=== PATIENT | male | born 1965 | race African-American/Black ===

== ENCOUNTER 2021-03-05 01:42 | Observation (INO) | payer BC ==
[2021-03-05] MEDS ORDERED: Ondansetron ODT 4 MG TAB PO PRN (02:55)
[2021-03-05] MEDS ORDERED: Acetaminophen 325 MG TAB PO PRN (02:55)
[2021-03-05] MEDS ORDERED: hydrALAZINE 20 MG/ML VIAL SLOW IVP PRN (02:55)
[2021-03-05] MEDS ORDERED: Ondansetron PF 4 MG/2 ML Vial IVP PRN (02:55)
[2021-03-05] MEDS ORDERED: Enoxaparin Sodium 40 MG/0.4 ML SYRINGE SC SCH (03:30)
[2021-03-05 04:11] LABS: SARS-CoV-2 NAA Rapid Test Not Detected (NotDetected)
[2021-03-05 06:32] LABS: #Eosinphils 0.2 thou/uL (0.0-0.7); #Lymphocytes 2.7 thou/uL (1.20-3.40); #Monocytes 0.5 thou/uL (0.11-0.59); #Neutrophils 2.1 thou/uL (1.40-6.50); %Basophils 0.8 % (0.0-1.0); %Eosinophils 3.3 % (0.0-10.0); %Lymphocytes 49.4 % (21.0-51.0); %Monocytes 8.7 % (0.0-10.0); %Neutrophils 37.7 % (42.0-75.0); Mean Corpuscular HGB CONC 32.6 g/dL (32.0-36.0); Mean Corpuscular Hemoglobin 28.9 pg (27.0-31.0); Mean Corpuscular Volume 88.8 fL (78.0-98.0); Mean Platelet Volume 7.4 fL (7.4-10.4); Platelet Count 255 thou/uL (130-400); Red Blood Cell (RBC) Count 4.15 mill/uL (4.70-6.10); White Blood Cell (WBC) Count 5.5 thou/uL (4.8-10.8)
[2021-03-05 06:49] LABS: Anion Gap 14 mmol/L (10-20); BUN (Urea Nitrogen) 15 mg/dL (8.4-25.7); Calc. Creatinine Clearance 0 mL/min (70-130); Calcium 9.2 mg/dL (7.8-10.44); Carbon Dioxide 25 mmol/L (22-29); Cardiac Risk 5.9 (Less than 4.5); Chloride 101 mmol/L (98-107); Cholesterol 194 mg/dl (< 200 Desired); Glucose 97 mg/dL (70-105); HDL Cholesterol 33 mg/dL (>60 Neg Risk); LDL Cholesterol, Calculated 137 mg/dL; Potassium 4.1 mmol/L (3.5-5.1); Sodium 136 mmol/L (136-145); Triglycerides 118 mg/dL (Less than 150)
[2021-03-05 06:54] LABS: Troponin I Less than 0.010 ng/mL (< 0.028)
[2021-03-05 07:56] VITALS: BMI 31.2
[2021-03-05] MEDS ORDERED: Aspirin 81 mg Enteric Coated Tablet PO SCH (09:00)
[2021-03-05] MEDS ORDERED: ADENOSINE 60 MG/20 ML VIAL ONE (10:56)
[2021-03-05 12:07] LABS: Troponin I Less than 0.010 ng/mL (< 0.028)
[2021-03-05 17:18] VITALS: BP 143/77; TEMP 98.4
== END 2021-03-05 18:35 | disposition home or self-care (01) ==
LOC: ERS 01:42 → 2NO 02:11
PROVIDERS: ADMIT Student in an Organized Health Care Education/Training Program; ATTEND Student in an Organized Health Care Education/Training Program
DX: G45.9 Transient cerebral ischemic attack, unspecified (principal); I16.0 Hypertensive urgency; M25.511 Pain in right shoulder; M54.32 Sciatica, left side; I11.9 Hypertensive heart disease without heart failure; R07.9 Chest pain, unspecified; R05 Cough; I08.1 Rheumatic disorders of both mitral and tricuspid valves; M25.561 Pain in right knee; Z79.899 Other long term (current) drug therapy; Z20.822 Contact with and (suspected) exposure to COVID-19
CPT/HCPCS: 0240U; 36415; 78452; 80048; 80061; 84484; 85025; 93017; 93306; 96372; A9500; G0378; J0153; J1650